=== PATIENT | male | born 1990 ===

== ENCOUNTER → 2025-07-04 | Outpatient (REF) | payer OTHER ==
[2025-07-04 17:18] LABS: SEMEN APPEARANCE OPAQUE (OPAQUE); SEMEN VISCOSITY LIQUID (LIQUID); SEMEN VOLUME 2.1 ml (2.0-5.0)
[2025-07-04 17:19] LABS: WBC CONCENTRATION >1 M/ml (<=1 M/ml)
== END ==
LOC: M LAB REF 17:04
PROVIDERS: ATTEND Physician Assistant Medical
DX: Z98.52 Vasectomy status (principal)